=== PATIENT | female | born 1995 | race Caucasian/White ===

== ENCOUNTER 2020-09-05 21:13 | Emergency (ER) | payer OTHER ==
[~2020-09-05] VITALS: Ht 180.3 cm; Wt 99.6 kg
[2020-09-05 21:19] VITALS: Ht 180.3 cm; Wt 99.6 kg
[2020-09-05 22:41] VITALS: BP 139/89
== END 2020-09-05 22:41 | disposition home or self-care (01) ==
LOC: ED 21:13
DX: S50.361A Insect bite (nonvenomous) of right elbow, initial encounter (principal); W57.XXXA Bitten or stung by nonvenomous insect and other nonvenomous arthropods, initial encounter; Y93.89 Activity, other specified; Y92.89 Other specified places as the place of occurrence of the external cause; Y99.8 Other external cause status
CPT/HCPCS: J7512